=== PATIENT | female | born 2000 | race Caucasian/White ===

== ENCOUNTER 2022-07-01 12:58 | Emergency (ER) | payer OTHER, SELFPAY ==
[2022-07-01 13:11] VITALS: BP 135/73; PULSE 73; RESP 16; TEMP 36.2; O2SAT 98; BMI 29.2
--- NOTE | 2022-07-01 13:15 | DI.RAD.S_ITS ---
PROCEDURE: XR RIBS RT MIN 3V W CXR 1V INDICATIONS: rib pain after coughing TECHNIQUE: 2 views of the left ribs were acquired, along with a single view chest. COMPARISON: None. FINDINGS: Surgical changes and devices: None. Bones and chest wall: No acute displaced rib fracture. No suspicious bony lesions. Overlying soft tissues appear unremarkable. Lungs and pleura: No pleural effusions or pneumothorax. Lungs appear clear. Mediastinum: Mediastinal contours appear normal. Heart size is normal. IMPRESSION: No acute displaced rib fracture. No pneumothorax. Approved by: Dirk Tenorio M.D. on 07/01/2022 at 13:56
[2022-07-01] MEDS: ACETAMINOPHEN 325 MG TABLET 975 MG PO (14:30)
[2022-07-01] MEDS: IBUPROFEN 400 MG TABLET 800 MG PO (14:31)
--- NOTE | 2022-07-01 14:34 | PC.NURSE ---
pt states she has a sinus infection in May in which she was treated for. States she has had chronic cough since and subsequent rib pain. Medicated with tylenol and ibuprofen in ED.
--- NOTE | 2022-07-01 14:53 | DI.RAD.S_ITS ---
PROCEDURE: XR CHEST 1V INDICATIONS: left rib pain, cough x3 weeks, pneumonia vs reactive airway TECHNIQUE: One view of the chest was acquired. COMPARISON: [facility], CR, XR RIBS RT MIN 3V W CXR 1V, 07/01/2022, 13:34. FINDINGS: Surgical changes and devices: None. Lungs and pleura: Lungs are clear. No pleural effusions or pneumothorax. Mediastinum: Mediastinal contours appear normal. Heart size is normal. Bones and chest wall: No suspicious bony lesions. Overlying soft tissues appear unremarkable. IMPRESSION: No trauma found. Dictated by: Esteban Reid M.D. on 07/01/2022 at 15:35 Approved by: Esteban Reid M.D. on 07/01/2022 at 15:35
--- NOTE | 2022-07-01 14:55 | ED.URI ---
HPI - URI/Sore Throat <MER Chin - Last Filed: 07/01/22 16:41> General Chief Complaint: Upper Respiratory Symptoms Stated Complaint: DRY COUGH, Time Seen by Provider: 07/01/22 14:42 Source: patient Mode of arrival: Ambulatory History of Present Illness HPI Narrative: This is a 21-year-old female who presents to the emergency department endorsing cough for the last 3 weeks, states it started as allergy symptoms, progressed to sinusitis, was seen in urgent care 3 times and has tried fluticasone, is currently on prednisone daily, states that she no longer takes verapamil as listed on her medication list. Requested med reconcilliation from nursing. Patient states that she was given albuterol inhaler but it did not help. She is not tried any allergy medication. She states it is dry cough, is not productive. She denies any wheezing, states that her right-sided rib pain happened after coughing episode last night. She states it is tender to palpation, worse with deep breath, states that she is breathing shallow due to this. Related Data Home Medications Medication Instructions Recorded Confirmed benzonatate 200 mg capsule 200 mg PO Q12HR 07/01/22 07/01/22 prednisone 20 mg tablet 40 mg PO DAILY cough 07/01/22 07/01/22 Previous Rx's Medication Instructions Recorded benzocaine 15 mg-menthol 3.6 mg 1 keaton mucous membrane Q3H #16 ea 07/01/22 lozenges (Cepacol Sore Throat (benzocaine-menthol)) cetirizine 10 mg tablet 10 mg PO BEDTIME #20 tabs 07/01/22 lidocaine 5 % topical patch 1 patch topical DAILY #15 ea 07/01/22 (Lidoderm) methocarbamol 500 mg tablet 500 mg PO BEDTIME PRN rib pain, 07/01/22 muscle spasm #14 tabs Allergies Allergy/AdvReac Type Severity Reaction Status Date / Time No Known Drug Allergies Allergy Verified 07/01/22 13:11 Review of Systems <MER Chin - Last Filed: 07/01/22 16:41> Review of Systems Narrative: Short Patient History <MER Chin - Last Filed: 07/01/22 16:41> Social History Smoking Status: Unknown if ever smoked Smoking Status: Unknown if ever smoked alcohol intake frequency: holidays/special occasions only Substance Use Type: does not use Exam <MER Chin - Last Filed: 07/01/22 16:41> Narrative Exam Narrative: Reviewed vitals signs and nursing notes. General: cooperative, comfortable, in no acute distress, well groomed HEENT: symmetrical facial expressions, moist mucous membranes, no rhinorrhea, sinus tenderness, posterior pharynx is pink without tonsillar adenopathy or exudate, Cardiovascular: regular rate and rhythm, no peripheral edema, warm extremities Respiratory: normal effort, breath sounds clear throughout all kennedy, taking shallow breaths due to pain, pain is worse with deep inspiration, tenderness to the right anterior ribs over 6 through 8 without ecchymosis, erythema or rash. Dry cough Able to speak in complete sentences, without wheezing, stridor, or abnormal breath sounds. No retractions or tachypnea. Skin: brisk capillary refill, without pallor or erythema Neuro: normal speech and cognition, A&O x3, ambulatory, clear speech Psych: mental status is grossly normal, congruent mood, normal affect, pleasant and cooperative Initial Vital Signs Initial Vital Signs: Vital Signs Temperature 97.2 F L 07/01/22 13:11 Pulse Rate 73 07/01/22 13:11 Respiratory Rate 16 07/01/22 13:11 Blood Pressure 135/73 07/01/22 13:11 Pulse Oximetry 98 07/01/22 13:11 Oxygen Delivery Method 07/01/22 13:11 <Janee Dye DO - Last Filed: 07/05/22 02:53> Initial Vital Signs Initial Vital Signs: Vital Signs Temperature 97.2 F L 07/01/22 13:11 Pulse Rate 73 07/01/22 13:11 Respiratory Rate 16 07/01/22 13:11 Blood Pressure 135/73 07/01/22 13:11 Pulse Oximetry 98 07/01/22 13:11 Oxygen Delivery Method 07/01/22 13:11 Course <MER Chin - Last Filed: 07/01/22 16:41> Orders Ordered: Discontinued Medications Acetaminophen (Acetaminophen 325 Mg Tablet) 975 mg PO NOW ONE Stop: 07/01/22 14:25 Last Admin: 07/01/22 14:30 Dose: 975 mg Documented By: CTS Benzonatate (Benzonatate 100 Mg Capsule) 100 mg PO NOW ONE Stop: 07/01/22 15:06 Last Admin: 07/01/22 15:11 Dose: 100 mg Documented By: EBONIE Ibuprofen (Ibuprofen 400 Mg Tablet) 800 mg PO NOW ONE Stop: 07/01/22 14:25 Last Admin: 07/01/22 14:31 Dose: 800 mg Documented By: BREEZY Lidocaine (Lidocaine Patch 1 Each Adh..Patch) 1 each TOP NOW ONE Stop: 07/01/22 14:54 Last Admin: 07/01/22 15:11 Dose: 1 each Documented By: EBONIE Vital Signs Vital signs: Vital Signs - 8 hr 07/01/22 13:11 07/01/22 16:18 Temperature 97.2 F L Pulse Rate 73 67 Respiratory Rate 16 16 Blood Pressure 135/73 121/70 Pulse Oximetry 98 97 Oxygen Delivery Method Room Air Room Air <Janee Dye DO - Last Filed: 07/05/22 02:53> Orders Ordered: Discontinued Medications Acetaminophen (Acetaminophen 325 Mg Tablet) 975 mg PO NOW ONE Stop: 07/01/22 14:25 Last Admin: 07/01/22 14:30 Dose: 975 mg Documented By: BREEZY Benzonatate (Benzonatate 100 Mg Capsule) 100 mg PO NOW ONE Stop: 07/01/22 15:06 Last Admin: 07/01/22 15:11 Dose: 100 mg Documented By: EBONIE Ibuprofen (Ibuprofen 400 Mg Tablet) 800 mg PO NOW ONE Stop: 07/01/22 14:25 Last Admin: 07/01/22 14:31 Dose: 800 mg Documented By: BREEZY Lidocaine (Lidocaine Patch 1 Each Adh..Patch) 1 each TOP NOW ONE Stop: 07/01/22 14:54 Last Admin: 07/01/22 15:11 Dose: 1 each Documented By: EBONIE Vital Signs Vital signs: Vital Signs - 8 hr 07/01/22 13:11 07/01/22 16:18 Temperature 97.2 F L Pulse Rate 73 67 Respiratory Rate 16 16 Blood Pressure 135/73 121/70 Pulse Oximetry 98 97 Oxygen Delivery Method Room Air Room Air MDM - URI/Sore Throat <MER Chin - Last Filed: 07/01/22 16:41> Imaging Data rib xr: My Impression: PROCEDURE:? XR CHEST 1V ? INDICATIONS:? left rib pain, cough x3 weeks, pneumonia vs reactive airway ? TECHNIQUE:? One view of the chest was acquired.? ? COMPARISON:? [facility], CR, XR RIBS RT MIN 3V W CXR 1V, 07/01/2022, 13:34. ? FINDINGS:? ? Surgical changes and devices:? None.? ? Lungs and pleura:? Lungs are clear.? No pleural effusions or pneumothorax.? ? Mediastinum:? Mediastinal contours appear normal.? Heart size is normal.? ? Bones and chest wall:? No suspicious bony lesions.? Overlying soft tissues appear unremarkable.? ? IMPRESSION:? No trauma found. ? ? Dictated by: Esetban Reid M.D. on 07/01/2022 at 15:35 ? ? Approved by: Esteban Reid M.D. on 07/01/2022 at 15:35 ? Radiologist's Impression: PROCEDURE:? XR RIBS RT MIN 3V W CXR 1V ? INDICATIONS:? rib pain after coughing ? TECHNIQUE:? 2 views of the left ribs were acquired, along with a single view chest.? ? COMPARISON:? None. ? FINDINGS:? ? Surgical changes and devices:? None.? ? Bones and chest wall:? No acute displaced rib fracture.? No suspicious bony lesions.? Overlying soft tissues appear unremarkable.? ? Lungs and pleura:? No pleural effusions or pneumothorax.? Lungs appear clear.? ? Mediastinum:? Mediastinal contours appear normal.? Heart size is normal.? ? IMPRESSION:? No acute displaced rib fracture.? No pneumothorax. ? ? ? Approved by: Dirk Tenorio M.D. on 07/01/2022 at 13:56? [facility] Narrative Medical decision making narrative: This is a 21-year-old female presents to the emergency department with right-sided rib pain to palpation and with deep inspiration, this started last night after coughing episode. Patient has had a cough for the last 3 weeks, states it started as allergies, progressive sinusitis, now bronchitis and is currently on prednisone which he states is helping her get a full breath. She denies any wheezing, shortness of breath or difficulty breathing. She has tenderness to palpation over the right anterior 4 through 6 ribs, no crepitus, ecchymosis, abnormal edema or other finding. Chest x-ray and rib x-ray both anterior and lateral do not show any focal opacities, without fracture or pneumothorax. Encourage patient to use lidocaine patches, she was prescribed throat lozenges, Tessalon Perles, cetirizine to use at night and she can continue on her prednisone until it is gone. I gave her methocarbamol and encouraged Tylenol and ibuprofen for her symptoms. Grocery stay hydrated, avoid cold air or other triggers for coughing. Patient is appropriate and amenable to discharge home. Vital signs are stable on repeat examination is unremarkable. Patient has been informed of results. Patient has been given strict return to ER precautions for any new or worsening symptoms. Patient understands to follow up closely with outpatient providers as instructed. Patient understands plan and agrees to discharge home. All questions and concerns answered at this time. Discharge Plan Departure Patient Disposition: Home Clinical Impression: Costal chondritis Cough Qualifiers: Cough type: acute Qualified Code(s): R05.1 - Acute cough Instructions: Cough, Costochondritis Activity Restrictions/Additional Instructions: *You have been diagnosed with costochondritis, there does not appear to be any lung related issues. Please stay hydrated, take Tylenol and ibuprofen for your symptoms, you may take muscle relaxer for severe pain, it will be helpful at nighttime, please use the cough medicines, throat lozenges, drink honey with tea, and start taking Zyrtec at nighttime as well. Please try and stay hydrated, follow-up if you have any worsening of your symptoms. I hope you feel better soon. *What to do: *Please continue to take your regular medications as directed. [x ] New medication prescriptions sent to your pharmacy: [ [facility]] [ ] New medication written as a paper prescription [ ] No new medications given *Please follow up with your primary care provider in 2-3 days, call for an appointment. Let them know you were seen in the Emergency Department and that we asked that you be seen for follow-up. We will electronically transmit a record of today's note if your PCP is in our system *If you do not have a primary care provider please contact [phone] to establish care with one of the [facility] primary care providers. *Return to Emergency Department if you should have any new, worsening, or concerning symptoms, such as [fever greater than 101F, chills, worsening pain, persistent vomiting or other bothersome symptoms]. Prescriptions: New lidocaine [Lidoderm] 5 % adhesive patch,medicated 1 patch topical DAILY Qty: 15 0RF Rx Instructions: leave on most painful area for up to 12 hrs cetirizine 10 mg tablet 10 mg PO BEDTIME Qty: 20 0RF Cepacol Sore Throat (luis miguel-men) 15-3.6 mg lozenge 1 keaton mucous membrane Q3H Qty: 16 0RF methocarbamol 500 mg tablet 500 mg PO BEDTIME PRN (Reason: rib pain, muscle spasm) Qty: 14 0RF No Action benzonatate 200 mg capsule 200 mg PO Q12HR prednisone 20 mg tablet 40 mg PO DAILY Label Comments: Take 2 tablet by mouth once a day Visit Report Forms: Patient Portal/API <Janee Dye DO - Last Filed: 07/05/22 02:53> Cosign ED Attending Cosyolandaature Attestation: I was immediately available in the department for consultation. Documentation has been reviewed. I agree with assessment and plan.
[2022-07-01] MEDS: LIDOCAINE PATCH 1 EACH ADH..PATCH TOP (15:11)
[2022-07-01] MEDS: BENZONATATE 100 MG CAPSULE PO (15:11)
--- NOTE | 2022-07-01 16:17 | PC.NURSE ---
pt reports feeling better post medications and requesting DC. Mother at bedside. vitals repeated
[2022-07-01 16:18] VITALS: BP 121/70; PULSE 67; RESP 16; O2SAT 97
== END 2022-07-01 16:39 | disposition home or self-care (01) ==
PROVIDERS: Emergency Provider Nurse Practitioner Critical Care Medicine
DX: R05.1 Acute cough (principal); R07.81 Pleurodynia; M94.0 Chondrocostal junction syndrome [Tietze]
CPT/HCPCS: 71045; 71101; 94150; 99284

== ENCOUNTER 2022-08-31 08:11 | Emergency (ER) | payer OTHER, SELFPAY ==
[2022-08-31 08:15] VITALS: BP 127/78; PULSE 73; RESP 18; TEMP 36.6; O2SAT 97; BMI 25.7
--- NOTE | 2022-08-31 08:27 | DI.RAD.S_ITS ---
PROCEDURE: XR KNEE RT 3V INDICATIONS: ski accident, twisted, painful TECHNIQUE: 3 views of the knee were acquired. COMPARISON: None. FINDINGS: Bones: No fractures or dislocations. No suspicious bony lesions. Soft tissues: No joint effusion. No suspicious soft tissue calcifications. IMPRESSION: No acute radiographic findings. If pain persists, followup imaging in 5-7 days is recommended to exclude occult fracture. Dictated by: Bev Gamez M.D. on 08/31/2022 at 9:00 Approved by: Bev Gamez M.D. on 08/31/2022 at 9:00
--- NOTE | 2022-08-31 08:33 | ED_ITS ---
HPI - Extremity Injury (Lower) General Chief Complaint: Extremity Injury, Lower Stated Complaint: right knee injury Time Seen by Provider: 08/31/22 08:23 History of Present Illness HPI Narrative: Patient is a 22-year-old healthy female who presents with right knee injury yesterday. States she was skiing at [place] no conditions were not great she went to turn and felt a pop. She was able to [place] to the [place] but then started hearing more popping. [place] like her knee bent backwards. She is able to hobble around but hurts quite a bit. Hurts to extend but she is able to do so. No other injuries. Related Data Home Medications Medication Instructions Recorded Confirmed benzonatate 200 mg capsule 200 mg PO Q12HR 07/01/22 07/01/22 prednisone 20 mg tablet 40 mg PO DAILY cough 07/01/22 07/01/22 Previous Rx's Medication Instructions Recorded benzocaine 15 mg-menthol 3.6 mg 1 keaton mucous membrane Q3H #16 ea 07/01/22 lozenges (Cepacol Sore Throat (benzocaine-menthol)) cetirizine 10 mg tablet 10 mg PO BEDTIME #20 tabs 07/01/22 lidocaine 5 % topical patch 1 patch topical DAILY #15 ea 07/01/22 (Lidoderm) methocarbamol 500 mg tablet 500 mg PO BEDTIME PRN rib pain, 07/01/22 muscle spasm #14 tabs hydrocodone 5 mg-acetaminophen 325 1 tab PO Q6H PRN pain #20 tabs 08/31/22 mg tablet Allergies Allergy/AdvReac Type Severity Reaction Status Date / Time No Known Drug Allergies Allergy Verified 07/01/22 13:11 Review of Systems Review of Systems Narrative: GENERAL: Denies chills,fever HEENT: Denies throat pain RESPIRATORY: Denies dyspnea, cough, wheezing CARDIOVASCULAR: Denies chest pain, palpitations GASTROINTESTINAL: Denies nausea, vomiting MUSCULOSKELETAL: See HPI SKIN: No rash, no laceration, no pruritus NEUROLOGIC: Denies weakness, dizziness, headache, numbness 8 point review of systems is negative except for those stated above and HPI Patient History Social History Smoking Status: Unknown if ever smoked Smoking Status: Unknown if ever smoked alcohol intake frequency: holidays/special occasions only Substance Use Type: does not use Exam Initial Vital Signs Initial Vital Signs: Vital Signs Temperature 98 F 08/31/22 08:15 Pulse Rate 73 08/31/22 08:15 Respiratory Rate 18 08/31/22 08:15 Blood Pressure 127/78 08/31/22 08:15 Pulse Oximetry 97 08/31/22 08:15 Oxygen Delivery Method 08/31/22 08:15 GENERAL: Well-appearing, well-nourished and in no acute distress. CARDIOVASCULAR: peripheral pulses in tact, cap refill <2 sec RESPIRATORY: No respiratory distress, speaks in full sentences without difficulty EXTREMITIES: Normal range of motion, no clubbing or edema. Neurovascularly intact Right knee swollen stable distal pedal pulse intact. Limited range of motion NEUROLOGICAL: Cranial nerves II through XII grossly intact. Normal gait and speech. SKIN: Warm, dry, no petechiae, no rashes or lesions. Course Orders Ordered: ED Orders 08/31/22 08:27 XR knee RT 3V Stat Vital Signs Vital signs: Vital Signs - 8 hr 08/31/22 08:15 Temperature 98 F Pulse Rate 73 Respiratory Rate 18 Blood Pressure 127/78 Pulse Oximetry 97 Oxygen Delivery Method Room Air MDM - Extremity Injury (Lower) Imaging Data Extremity x-ray #1: Radiologist's Impression: XRay Report Signed Patient: Guy Holcomb MR#: [id number] : 2000 Acct:[id number] Age/Sex: 22 / F Date of Service: 08/31/22 Loc: ED Accession Number: [id number] ?? Procedure: XR knee RT 3V Ordering Provider: Janee Dye D.O. PROCEDURE:? XR KNEE RT 3V ? INDICATIONS:? ski accident, twisted, painful ? TECHNIQUE:? 3 views of the knee were acquired.? ? COMPARISON:? None. ? FINDINGS:? ? Bones:? No fractures or dislocations.? No suspicious bony lesions.? ? Soft tissues:? No joint effusion.? No suspicious soft tissue calcifications.? ? ? IMPRESSION:? No acute radiographic findings. If pain persists, followup imaging in 5-7 days is recommended to exclude occult fracture. ? ? Dictated by: Bev Gamez M.D. on 08/31/2022 at 9:00 [facility] Narrative Medical decision making narrative: Patient twisted her knee while skiing. Possibly torn ligament but knee is stable. X-ray is negative. Neurovascularly intact. At this time supportive care only. 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 She may require outpatient MRI. He is given a knee brace and crutches here in the ED. Discharge Plan Departure Patient Disposition: Home Clinical Impression: Right knee sprain Instructions: DI for Knee Sprain Activity Restrictions/Additional Instructions: *You have been diagnosed with right knee sprain *What to do: At this time wear knee immobilizer while active and possibly while sleeping. May take off for bathing. Use crutches as needed. May weight bear as tolerated. Ice and elevate. *Continue to take medications as directed [place] 1 tablet every 6 hours if needed for severe pain--> SENT OT TOMER HENRIQUEZ IN [place] Motrin 600 mg every 6 hours if needed for [id number] *Follow up with your primary care provider in 2-3 days or call [phone] *Return to ER if you should have increasing pain swelling redness or any new, worsening or concerning symptoms CONTROLLED SUBSTANCE DISCHARGE (Narcotoic/benzodiazepine/Flexeril/Phenergan) 1. You have been prescribed narcotic medications, it does have acetaminophen/Tylenol/paracetamol in it, DO NOT TAKE MORE THAN 4,00mg in 24 hours of Tylenol. TRAMADOL DOES NOT CONTAIN TYLENOL 2. Please understand that we cannot provide further refills of narcotics, benzodiazepines or controlled substances through the ED and her pain management will need to be through your provider. 3. While on these medications you cannot drive or operate heavy machinery. 4. You cannot sign legal documents or perform any duties such as this. 5. As long as you're taking opiate pain medications he should also be taking a stool softener such as Colace, Dulcolax, MiraLAX or prune juice, to help avoid constipation. Prescriptions: New hydrocodone-acetaminophen 5-325 mg tablet 1 tab PO Q6H PRN (Reason: pain) Qty: 20 0RF No Action benzonatate 200 mg capsule 200 mg PO Q12HR prednisone 20 mg tablet 40 mg PO DAILY Label Comments: Take 2 tablet by mouth once a day lidocaine [Lidoderm] 5 % adhesive patch,medicated 1 patch topical DAILY Qty: 15 0RF Rx Instructions: leave on most painful area for up to 12 hrs cetirizine 10 mg tablet 10 mg PO BEDTIME Qty: 20 0RF Cepacol Sore Throat (luis miguel-men) 15-3.6 mg lozenge 1 keaton mucous membrane Q3H Qty: 16 0RF methocarbamol 500 mg tablet 500 mg PO BEDTIME PRN (Reason: rib pain, muscle spasm) Qty: 14 0RF Visit Report Forms: Patient Portal/API
== END 2022-08-31 10:20 | disposition home or self-care (01) ==
PROVIDERS: Emergency Provider Emergency Medicine
DX: S83.91XA Sprain of unspecified site of right knee, initial encounter (principal); X50.1XXA Overexertion from prolonged static or awkward postures, initial encounter; Y93.23 Activity, snow (alpine) (downhill) skiing, snowboarding, sledding, tobogganing and snow tubing
CPT/HCPCS: 73562; 99283